=== PATIENT | female | born 1935 | race Caucasian/White ===

== ENCOUNTER 2021-03-31 06:13 | Emergency (ER) | payer MEDICARE, SELFPAY ==
--- NOTE | ~2021-03-31 | CT_ITS ---
EXAMINATION: CT brain wo con DATE: 03/31/2021 07:08 INDICATION: Head injury. TECHNIQUE: Computed tomography (CT) of the head was performed without intravenous contrast. The mA wa s adjusted according to patient size. Iterative reconstruction technique was employed. The dose-lengt h product was 605.33 mGy-cm. COMPARISON: Head CT 10/10/2018 FINDINGS: There are scattered areas of low attenuation in the cerebral white matter. There is an old lacunar infarct in right thalamus. There is a chronic 1.8 cm calcified extra-axial mass overlying rig ht frontal lobe. There is an old infarct in left lentiform nucleus. There is no acute ischemic infarc t or intracranial hemorrhage. There is new mild ventriculomegaly involving the lateral and third vent ricles. The paranasal sinuses are clear. The mastoid air cells are normal. There is posterior scalp s oft tissue swelling. IMPRESSION: 1. 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 2. New mild ventriculomegaly involving the lateral and third ventricles. Correlate clinically for nor mal pressure hydrocephalus. 3. Worsened moderate nonspecific cerebral white matter disease, which likely represents chronic small vessel ischemic disease. 4. Chronic 1.8 cm calcified extra-axial mass overlying right frontal lobe that is contiguous with the skull. This finding may be hyperostosis frontalis interna or a meningioma. Reviewed, dictated and finalized at location A. IMPRESSION: 1. 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 2. New mild ventriculomegaly involving the lateral and third ventricles. Correl ate clinically for normal pressure hydrocephalus. 3. Worsened moderate nonspecific cerebral white matter disease, which likely re presents chronic small vessel ischemic disease. 4. Chronic 1.8 cm calcified extra-axial mass overlying right frontal lobe that is contiguous with the skull. This finding may be hyperostosis frontalis credit intern a or a meningioma.
--- NOTE | ~2021-03-31 | CT_ITS ---
EXAMINATION: CT cervical spine wo con DATE: 03/31/2021 07:08 INDICATION: Head injury. TECHNIQUE: Computed tomography (CT) of the cervical spine was performed without intravenous contrast. Automated exposure control and iterative reconstruction technique were employed. The dose-length pro duct was 196.30 mGy-cm. COMPARISON: None FINDINGS: There are airspace and groundglass opacities with air bronchograms at right lung apex. Ther e is kyphosis of cervical spine. There is 3 mm anterolisthesis of C3 on C4 and C4 on C5 and 2 mm ante rolisthesis of C7 on T1. Vertebral body heights are normal. There is mildly decreased disc height at C3-C4 and severely decreased disc height at C5-C6 and C6-C7. There is peridens degenerative pseudopan nus with mild central canal stenosis. The following disc levels are specifically discussed: C2-C3: There is mild bilateral uncovertebral joint osteoarthritis. There is severe right and mild lef t facet joint osteoarthritis. There is mild right neural foraminal stenosis. There is no central kendall l stenosis. C3-C4: There is no uncovertebral joint osteoarthritis. There is severe bilateral facet joint osteoart hritis. There is moderate right and mild left neural foraminal stenosis. There is no central canal st enosis. C4-C5: There is mild bilateral uncovertebral joint osteoarthritis. There is severe right and mild lef t facet joint osteoarthritis. There is moderate right neural foraminal stenosis. There is no central canal stenosis. C5-C6: There is severe bilateral uncovertebral joint osteoarthritis. There is mild bilateral facet belinda int osteoarthritis. There is moderate bilateral neural foraminal stenosis. There is mild central kendall l stenosis. C6-C7: There is severe bilateral uncovertebral joint osteoarthritis. There is mild bilateral facet belinda int osteoarthritis. There is mild bilateral neural foraminal stenosis. There is mild central canal st enosis. C7-T1: There is no uncovertebral joint osteoarthritis. There is severe bilateral facet joint osteoart hritis. There is no neural foraminal stenosis. There is mild central canal stenosis. IMPRESSION: 1. No fracture. 2. Severe cervical spondylosis. Reviewed, dictated and finalized at location A.
[2021-03-31 06:14] VITALS: BP 164/80; PULSE 74; RESP 18; TEMP 36.6; O2SAT 100
[2021-03-31 07:31] VITALS: BP 147/74
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
[2021-03-31 08:01] VITALS: BP 143/104; PULSE 66; RESP 15; O2SAT 99
--- NOTE | 2021-03-31 08:33 | PC.NURSE ---
Called detention for past medical hx and med list. No paperwork sent with pt. Nurse reports she is agency and not very familiar with pt. Unable to find any hx listed other than hx of Alzheimers.
--- NOTE | 2021-03-31 08:36 | PC.NURSE ---
Attempted to contact pt's POA; no answer.
--- NOTE | 2021-03-31 09:24 | PC.NURSE ---
Attempted to ambulate pt. Pt unable to stand without great amount of assistance. Pt very confused. Pt continuously removing monitors and trying to get out of bed. Safety precautions in place. Close and frequent rounding of pt initiated.
--- NOTE | 2021-03-31 09:38 | PC.NURSE ---
Called and spoke with pt's Niece, Leyla, who reports as far as she knows pt ambulates on her own to get around. She does report that gait has not been very steady and pt shuffles her feet when walking. Leyla reports a recent fall. She also states she has not seen pt in over a year so she can not say for sure if pt uses any assistive devices.
--- NOTE | 2021-03-31 09:46 | PCCCNOTE ---
Spoke with Sanaz ESTES, at [facility] for medical history. Patient's only medical history is Alzheimer's and a vitamin deficiency. The only medications she takes are vitamin D2, Vitamin D3, a multivitamin and Aricept. At baseline she has lost all communication skills though she appears to understand somewhat when spoken to. She is dependent for all ADL's and walks independently with a shuffled gait
--- NOTE | 2021-03-31 11:17 | PC.NURSE ---
Report given to HUEY Yo at [facility].
[2021-03-31 12:17] VITALS: BP 148/70; PULSE 85; RESP 18; O2SAT 96
== END 2021-03-31 12:18 ==
PROVIDERS: Emergency Provider Emergency Medicine; PCP Family Medicine
DX: S01.01XA Laceration without foreign body of scalp, initial encounter (principal); G30.9 Alzheimer's disease, unspecified; F02.80 Dementia in other diseases classified elsewhere, unspecified severity, without behavioral disturbance, psychotic disturbance, mood disturbance, and anxiety; Y09 Assault by unspecified means
CPT/HCPCS: 12002; 70450; 72125; 99284

== ENCOUNTER 2022-01-15 17:58 | Emergency (ER) | payer MEDICARE, SELFPAY ==
--- NOTE | ~2022-01-15 | CT_ITS ---
EXAMINATION: CT facial & cervical spine wo DATE: 01/15/2022 19:10 INDICATION: fall TECHNIQUE: Computed tomography (CT) of the maxillofacial region and cervical spine was performed with out intravenous contrast. Automated exposure control and iterative reconstruction technique were empl oyed. The dose-length product was 118.07 mGy-cm. COMPARISON: None FINDINGS: CERVICAL: Vertebral Body Alignment: 3 mm anterolisthesis of C3 on C4 and C4 on C5, presumably on a degenerative basis. Reversal of the normal cervical lordosis centered at C5. Craniocervical and atlantoaxial alignment: Severe degenerative change with pannus formation. Alignmen t intact. Osseous structures/fracture: No evidence of a lytic or blastic process in the visualized spine. No e vidence of acute fracture. Cervical soft tissues: The paraspinal soft tissues planes are maintained. Degenerative changes: Multilevel severe degenerative disc disease. Multilevel facet arthropathy. Mult ilevel severe bilateral neural foraminal narrowing. Multilevel moderate central canal narrowing. FACE: Soft Tissues: No significant superficial soft tissue swelling. Facial bones: No acute fracture. No lytic or blastic process. Eyes: The globes are intact. The soft tissue planes of the orbits are maintained. Paranasal Sinuses: The visualized aerated spaces are clear. Foreign Bodies: No radiopaque foreign bodies. Other Findings: None. IMPRESSION: No acute fracture or traumatic malalignment in the cervical spine. No acute facial bone fracture. Reviewed, dictated and finalized at location K. IMPRESSION: No acute fracture or traumatic malalignment in the cervical spine. No acute fac ial bone fracture.
--- NOTE | ~2022-01-15 | XR_ITS ---
EXAM: XR pelvis 1-2V DATE: 01/15/2022 18:50 HISTORY: FALL,PT POOR HISTORIAN . COMPARISON: None available. FINDINGS: Normal mineralization. No fracture or dislocation. No lytic or blastic lesion. Degenerativ e changes in the lumbar spine and bilateral hips. No erosion or periosteal change. Soft tissues withi n normal limits. IMPRESSION: No acute osseous finding in the pelvis. Reviewed, dictated and finalized at location K.
--- NOTE | ~2022-01-15 | XR_ITS ---
EXAMINATION: XR chest 1V Exam Date/Time: 01/15/2022 18:37 CDT HISTORY: FALL,PT POOR HISTORIAN Comparison: None available. RESULT: Lines, tubes, and devices: None. Lungs and pleura: Clear. Cardiomediastinal silhouette: Unremarkable cardiomediastinal silhouette. Other: No acute osseous or upper abdominal finding. IMPRESSION: No acute cardiopulmonary process. Reviewed, dictated and finalized at location K.
--- NOTE | ~2022-01-15 | CT_ITS ---
EXAMINATION: CT brain wo con DATE: 01/15/2022 19:10 INDICATION: fall . TECHNIQUE: Computed tomography (CT) of the head was performed without intravenous contrast. The mA wa s adjusted according to patient size. Iterative reconstruction technique was employed. The dose-lengt h product was 832.33 mGy-cm. COMPARISON: 03/31/2021 FINDINGS: No acute intracranial hemorrhage or extra-axial fluid collection. No hydrocephalus, mass, or herniation. No acute ischemic infarct. Unremarkable dural venous sinus attenuation. No acute osseous abnormality. The aerated spaces are clear. Calcified right frontal meningioma. Moderate atrophy and chronic white matter change. Old bilateral l acunar infarcts. IMPRESSION: No acute intracranial process. Reviewed, dictated and finalized at location K.
[2022-01-15 17:59] VITALS: BP 97/66; PULSE 78; RESP 14; TEMP 36.6; O2SAT 99
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
[2022-01-15 19:23] VITALS: BP 123/56; PULSE 79; RESP 18; O2SAT 100
--- NOTE | 2022-01-15 21:27 | PC.NURSE ---
2127: Tried calling nurse report to [facility]. No answer at this time will try again.
--- NOTE | 2022-01-15 21:40 | PC.NURSE ---
Called report to [facility] at this time.
[2022-01-16 00:15] VITALS: BP 123/56; PULSE 79; RESP 18; O2SAT 100
== END 2022-01-16 00:10 ==
PROVIDERS: Emergency Provider Emergency Medicine; PCP Family Medicine
DX: S00.93XA Contusion of unspecified part of head, initial encounter (principal); G30.9 Alzheimer's disease, unspecified; F02.80 Dementia in other diseases classified elsewhere, unspecified severity, without behavioral disturbance, psychotic disturbance, mood disturbance, and anxiety; W06.XXXA Fall from bed, initial encounter
CPT/HCPCS: 70450; 70486; 71045; 72125; 72170; 99284

== ENCOUNTER 2022-02-07 10:56 | Emergency (ER) | payer MEDICARE, SELFPAY ==
[2022-02-07] VITALS (8 sets, daily range): BP systolic 108–149; BP diastolic 78–93; PULSE 64–68; RESP 16; TEMP 36.1; O2SAT 77–100
--- NOTE | ~2022-02-07 | CT_ITS ---
EXAMINATION: CT cervical spine wo con DATE: 02/07/2022 12:31 INDICATION: Head injury. TECHNIQUE: Computed tomography (CT) of the cervical spine was performed without intravenous contrast. Automated exposure control and iterative reconstruction technique were employed. The dose-length pro duct was 92.62 mGy-cm. COMPARISON: CT cervical spine 01/15/2022 FINDINGS: There is mild scarring at the lung apices. There is a 2.5 cm part solid nodule in right upp er lobe, stable from 03/31/2021, likely benign. There is kyphosis of cervical spine. There is 2 mm ante rolisthesis of C3 on C4 and C4 on C5. Vertebral body heights are normal. There is mildly decreased di sc height at C3-C4 and severely decreased disc height at C5-C6 and C6-C7. The following disc levels a re specifically discussed: C2-C3: There is mild bilateral uncovertebral joint osteoarthritis. There is severe right and mild lef t facet joint osteoarthritis. There is mild right neural foraminal stenosis. There is no central kendall l stenosis. C3-C4: There is mild bilateral uncovertebral joint osteoarthritis. There is severe bilateral facet belinda int osteoarthritis. There is mild bilateral neural foraminal stenosis. There is mild central canal st enosis. C4-C5: There is mild bilateral uncovertebral joint osteoarthritis. There is severe right and mild lef t facet joint osteoarthritis. There is mild right neural foraminal stenosis. There is mild central ca nal stenosis. C5-C6: There is severe bilateral uncovertebral joint osteoarthritis. There is mild bilateral facet belinda int osteoarthritis. There is moderate bilateral neural foraminal stenosis. There is mild central kendall l stenosis. C6-C7: There is severe bilateral uncovertebral joint osteoarthritis. There is mild bilateral facet belinda int osteoarthritis. There is mild bilateral neural foraminal stenosis. There is mild central canal st enosis. C7-T1: There is no uncovertebral joint osteoarthritis. There is moderate right and severe left facet joint osteoarthritis. There is mild bilateral neural foraminal stenosis. There is no central canal st enosis. IMPRESSION: 1. No fracture. 2. Severe cervical spondylosis. Reviewed, dictated and finalized at location A.
--- NOTE | ~2022-02-07 | CT_ITS ---
EXAMINATION: CT brain wo con DATE: 02/07/2022 12:30 INDICATION: Head injury. TECHNIQUE: Computed tomography (CT) of the head was performed without intravenous contrast. The mA wa s adjusted according to patient size. Iterative reconstruction technique was employed. The dose-lengt h product was 908.00 mGy-cm. COMPARISON: Head CT 01/15/2022 FINDINGS: There are scattered areas of low attenuation in the cerebral white matter. There is an old lacunar infarct in right thalamus. There is a chronic 1.8 cm calcified extra-axial mass overlying rig ht frontal lobe that is contiguous with the skull. There is no intracranial hemorrhage or acute infar ction. The ventricles are normal in size. The paranasal sinuses are clear. The mastoid air cells are normal. The orbits are normal. IMPRESSION: 1. 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 2. Chronic 1.8 cm calcified extra-axial mass overlying right frontal lobe that is contiguous with the skull. This finding may be hyperostosis frontalis interna or a meningioma. 3. Stable moderate nonspecific cerebral white matter disease, which likely represents chronic small v essel ischemic disease. Reviewed, dictated and finalized at location A. IMPRESSION: 1. 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 2. Chronic 1.8 cm calcified extra-axial mass overlying right frontal lobe that is contiguous with the skull. This finding may be hyperostosis frontalis actuarial internship a or a meningioma. 3. Stable moderate nonspecific cerebral white matter disease, which likely repr esents chronic small vessel ischemic disease.
--- NOTE | 2022-02-07 11:32 | ED.FALL ---
HPI - Fall General Chief Complaint: Fall Stated Complaint: fall Time Seen by Provider: 02/07/22 11:32 History of Present Illness HPI Narrative: Patient is an 86-year-old female with a history of advanced Alzheimer's dementia who resides at [facility] presenting to the emergency department for evaluation of ground-level fall with head trauma. Patient reportedly fell from a standing position hitting her head on the ground. This was witnessed by staff and patient had no loss of consciousness. Obviously history is limited secondary to the patient's baseline advanced dementia. Patient is able to state her name. She has a cervical collar in place. She is awake and alert currently. Vital signs are stable. Chart reviewed, patient with recent visit to our facility in December for a ground-level fall and ultimately discharged home. Otherwise, patient with visit couple of years ago, and limited history from the chart Related Data Home Medications Medication Instructions Recorded Confirmed memantine 5 mg tablet (Namenda) mg PO 03/31/21 Allergies Allergy/AdvReac Type Severity Reaction Status Date / Time No Known Allergies Allergy Verified 03/31/21 06:20 Review of Systems Review of Systems: ROS unobtainable: Yes unobtainable due to medical condition (Dementia) and unobtainable due to mental status PMFSH Past Medical History Medical History Alzheimer's dementia Surgical History Surgical History Surgical history unknown Social History Social History Smoking status: Unknown if ever smoked Exam Narrative: GENERAL: Awake, alert HEAD: Normocephalic, traumatic occipital hematoma, 1 cm superficial scalp laceration, no active bleeding EYES: 2+ PERRLA and EOMI. ENT: Nares clear, no rhinorrhea or epistaxis. Mucous membranes moist. NECK: Supple. Cervical collar in place. CHEST: No respiratory distress, breathing even and non labored, chest wall stable HEART: Regular rate, sinus rhythm ABDOMEN:Non distended, non tender EXTREMITIES: Normal range of motion. No edema. SKIN: Warm, dry, no rash. NEURO:No focal deficits. Alert and oriented x1 Course Vital Signs Vital signs: Vital Signs Temperature 36.1 C L 02/07/22 11:01 Pulse Rate 64 02/07/22 11:01 Respiratory Rate 16 02/07/22 11:01 Blood Pressure 108/84 02/07/22 11:01 Pulse Oximetry 100 02/07/22 11:01 Oxygen Delivery Room Air 02/07/22 11:01 Temperature 36.1 C L 02/07/22 11:01 Pulse Rate 64 02/07/22 11:01 Respiratory Rate 16 02/07/22 11:01 Blood Pressure 149/93 H 02/07/22 11:49 Pulse Oximetry 100 02/07/22 11:16 Oxygen Delivery Room Air 02/07/22 11:01 MDM - Fall MDM Narrative Medical decision making narrative: Patient presented for evaluation following a witness ground-level fall. At the time of assessment, patient is oriented to person, which seems to be her baseline. Seems mechanical in nature based on witnessed fall with head trauma. CT head and C-spine without acute intracranial abnormalities and no evidence of osseous vertebral injury. The scalp laceration was irrigated and closed with 2 edwin. Patient tolerated this well. Given stable vital signs, absence of prodromal symptoms prior to the fall, patient will be discharged back to facility without additional laboratory work-up or imaging. Patient's tetanus was updated in the ER. Discharge Plan Discharge Clinical Impression: Head injury, Laceration of occipital scalp Patient Disposition: SNF Condition: Stable Instructions: Head Injury (ED), Staple Care (ED) Additional Instructions: You had 2 edwin placed into a scalp laceration that was irrigated and free of any foreign bodies or debris. Your CT head and cervical spine imaging is normal without evidence of bleeding or fracture.
[2022-02-07] MEDS: TETANUS,DIPHTHERIA,AC PERTUSSIS ADULT (0.5 ML) BOOSTRIX IM (12:58)
== END 2022-02-07 13:30 ==
PROVIDERS: Emergency Provider Emergency Medicine; PCP Nurse Practitioner Family
DX: S01.01XA Laceration without foreign body of scalp, initial encounter (principal); G30.9 Alzheimer's disease, unspecified; F02.80 Dementia in other diseases classified elsewhere, unspecified severity, without behavioral disturbance, psychotic disturbance, mood disturbance, and anxiety; W18.30XA Fall on same level, unspecified, initial encounter; Z23 Encounter for immunization
CPT/HCPCS: 70450; 72125; 90471; 90715; 99284

== ENCOUNTER 2023-02-26 07:59 | Emergency (ER) | payer MEDICARE, SELFPAY ==
--- NOTE | ~2023-02-26 | CT_ITS ---
Noncontrast CT scan of the cervical spine Technique: Multiple contiguous axial [address] images of the cervical spine were obtained and rec onstructed in 2D sagittal and coronal planes on the acquisition scanner. Dose reduction technique was used on this scan by utilizing automated exposure control, adjustment of the mA and/or kV according to patient size. The dose-length product (DLP) was 94.64 mGy-cm. Clinical History: Pain COMPARISON: 02/07/2022 Findings: No fracture identified. Osseous alignment is essentially stable from prior exam. 4 mm anter olisthesis of C3 over C4 present. 3 mm anterolisthesis of C4 over C5 present. There is severe degener ative disc narrowing at C5-C6 and C6-C7, with associated uncovertebral degenerative change at these l evels. There is severe right neural foraminal narrowing at C3-C4, the right facet arthropathy present . There is additional right neural foraminal narrowing at C4-C5, with right-sided facet arthropathy. There is bilateral neural foraminal narrowing, severe on the left, mild to moderate on the right, at C5-C6. There is bilateral neural foraminal narrowing at C6-C7, left worse than right. No prevertebral soft tissue swelling. Stable right apical pulmonary opacity, presumed chronic scarring. Impression: No acute fracture. 4 mm anterolisthesis of C3 over C4, unchanged. 3 mm anterolisthesis of C4 over C5, unchanged. Moderate degenerative spondylosis, as above. Probable chronic right apical scarring, unchanged. Reviewed, dictated and finalized at [facility]. Impression: No acute fracture. 4 mm anterolisthesis of C3 over C4, unchanged. 3 mm anterolisthesis of C4 over C5, unchanged. Moderate degenerative spondylosis, as above. Probable chronic right apical scarring, unchanged.
--- NOTE | ~2023-02-26 | CT_ITS ---
CT head without contrast Indication: Status post fall COMPARISON: 02/07/2022 Technique: Serial scans were obtained through the brain without the administration of contrast. Dose reduction technique was used on this scan by utilizing automated exposure control and iterative recon struction technique. The dose-length product (DLP) was 605.33 mGy-cm. Findings: There is no evidence of intracranial hemorrhage, mass lesion, or acute infarct. The ventri cles and subarachnoid spaces are dilated, consistent with mild to moderate atrophy. Low attenuation regions are seen within the periventricular white matter bilaterally, likely representing changes fro m chronic microvascular ischemic disease. There is no evidence of edema, mass effect or midline shif t. The visualized paranasal sinuses and mastoid air cells are clear. Impression: No intracranial hemorrhage, mass, or acute infarct. Atrophy and chronic white matter changes, as above. Reviewed, dictated and finalized at location . Impression: No intracranial hemorrhage, mass, or acute infarct. Atrophy and chronic white matter changes, as above.
[2023-02-26 07:58] VITALS: BP 137/84; PULSE 69; RESP 14; TEMP 36.5; O2SAT 97
--- NOTE | 2023-02-26 08:08 | ECG_ITS ---
Measurements Intervals [place] Rate: 71 P: 70 RI: 131 QRS: -47 QRSD: 113 T: -1 QT: 367 QTc: 399 Interpretive Statements SINUS RHYTHM POSSIBLE LEFT ATRIAL ENLARGEMENT [-0.1mV P WAVE IN V1/V2] RIGHT BUNDLE BRANCH BLOCK [120+ ms QRS DURATION, UPRIGHT V1, 40+ ms S IN I/aVL/V4/V5/V6] LEFT ANTERIOR FASCICULAR BLOCK [QRS AXIS <= -45, QR IN I, RS IN II] ABNORMAL ECG NO PREVIOUS ECG AVAILABLE FOR COMPARISON Electronically Signed On 02-26-2023 10:28:36 CDT by Clovis Washington M.D.
--- NOTE | 2023-02-26 08:11 | ED.FALL ---
HPI - Fall General Chief Complaint: Fall Stated Complaint: unwitnessed fall Time Seen by Provider: 02/26/23 08:08 History of Present Illness HPI Narrative: Pt found on ground this morning per NH staff. Pt is demented and at her baseline per staff. Pt has small laceration to back of head. Pt not able to provide any history. Related Data Home Medications Medication Instructions Recorded Confirmed memantine 5 mg tablet (Namenda) mg PO 03/31/21 Allergies Allergy/AdvReac Type Severity Reaction Status Date / Time No Known Allergies Allergy Verified 03/31/21 06:20 Review of Systems Review of Systems: ROS unobtainable: Yes unobtainable due to mental status PMFSH Past Medical History Medical History Alzheimer's dementia Surgical History Surgical History Surgical history unknown Social History Social History Smoking status: Unknown if ever smoked Exam Const: General: no acute distress Nutritional Appearance: well nourished Limitations: altered mental status HENMT: Head: laceration (posterior scalp) Eyes: Conjunctivae: conjunctivae normal EOM: EOMs intact bilaterally Neck: Neck: normal visual inspection and no lymphadenopathy Chest: Chest palpation & inspection: normal inspection of the chest Resp: Effort & Inspection: normal respiratory effort Auscultation: clear to auscultation bilaterally Cardio: Rate: regular rate GI: Auscultation: normal bowel sounds Skin: General skin exam: normal color Rashes: no rashes Neuro: General: moves all extremities and no focal motor deficits Extrem: General: normal to inspection and no clubbing, cyanosis or edema Course Vital Signs Vital signs: Vital Signs Temperature 97.7 F 02/26/23 07:58 Pulse Rate 69 02/26/23 07:58 Respiratory Rate 14 02/26/23 07:58 Blood Pressure 137/84 02/26/23 07:58 Pulse Oximetry 97 02/26/23 07:58 Oxygen Delivery Room Air 02/26/23 07:58 Temperature 97.7 F 02/26/23 07:58 Pulse Rate 78 02/26/23 09:13 Respiratory Rate 18 02/26/23 09:13 Blood Pressure 148/69 H 02/26/23 09:13 Pulse Oximetry 98 02/26/23 09:13 Oxygen Delivery Room Air 02/26/23 07:58 Procedures Laceration Laceration 1: Site: scalp Size (cm): 1 Description: linear Depth: simple, single layer ====== Skin Level ====== Skin layer closed with: edwin (2) ====== Subcutaneous Layer ====== ====== Muscle Layer ====== ====== Tendon Layer ====== MDM - Fall MDM Narrative Medical decision making narrative: ground level fall with small head lac, will need CT brain and c spine since not able to answer questions due to dementia, will also check labs and ekg. labs ekg and ct gil fine wound stapled pt ok to go back Lab Data Attestation: I reviewed the patient's lab results. 02/26/23 08:47 02/26/23 08:47 Labs: Lab Results 02/26/23 02/26/23 Range/Units 08:47 08:48 WBC 8.6 (4.5-10.0) K/mm3 RBC 4.87 (4.2-5.4) M/mm3 Hgb 15.2 H (12.0-15.0) g/dL Hct 46.0 (37.0-47.0) % MCV 94.5 (80-100) fl MCH 31.2 (26-34) pg MCHC 33.0 (32-36) g/dl RDW 14.1 (11.5-14.5) % Plt Count 256 (150-375) k/mm3 MPV 9.8 (7.4-10.4) fl Immature Gran % (Auto) 0.8 H (0-0.5) % Neut % (Auto) 79.0 H (45.5-73.1) % Lymph % (Auto) 13.0 L (18.3-44.2) % [place] % (Auto) 5.6 (2.6-8.5) % Eos % (Auto) 1.1 (0-4.4) % Baso % (Auto) 0.5 (0.2-1.2) % Lymph # (Auto) 1.11 (0.9-3.2) K/mm3 [place] # (Auto) 0.5 (0.1-0.6) K/mm3 Eos # (Auto) 0.1 (0-0.3) K/mm3 Baso # (Auto) 0.0 (0.0-0.1) K/mm3 Abs Immat Gran (auto) 0.07 H (0.00-0.031) K/mm3 Absolute Neuts (auto) 6.8 H (1.3-6.7) K/mm3 Absolute Nucleated RBC 0.0 (0.0-0.012) K/mm3 Nucleated R
[2023-02-26 08:51] VITALS: BP 150/74; PULSE 71; RESP 19; O2SAT 96
[2023-02-26 08:55] LABS: Basophils Percent Auto 0.5 % (0.2-1.2); Eosinophils Absolute Auto 0.1 K/mm3 (0-0.3); Eosinophils Percent Auto 1.1 % (0-4.4); Hemoglobin 15.2 g/dL (12.0-15.0); Immature Granulocyte Absolute 0.07 K/mm3 (0.00-0.031); Immature Granulocyte Percent A 0.8 % (0-0.5); Lymphocytes Absolute Auto 1.11 K/mm3 (0.9-3.2); Mean Corpuscular Hemoglobin 31.2 pg (26-34); Mean Corpuscular Volume 94.5 fl (80-100); Mean Platelet Volume 9.8 fl (7.4-10.4); Monocytes Absolute Auto 0.5 K/mm3 (0.1-0.6); Monocytes Percent Auto 5.6 % (2.6-8.5); Neutrophils Absolute Auto 6.8 K/mm3 (1.3-6.7); Platelet Count Result 256 k/mm3 (150-375); Red Blood Count 4.87 M/mm3 (4.2-5.4); Red Cell Distribution Width 14.1 % (11.5-14.5); White Blood Count 8.6 K/mm3 (4.5-10.0)
[2023-02-26 08:57] LABS: Appearance Urine Clear (Clear); Bilirubin Urine Negative (Negative); Blood Urine Negative (Negative); Color Urine Yellow (Yellow); Glucose Urine UA Negative (Negative); Ketones Urine Negative (Negative); Leukocyte Esterase Ur Negative LEU/UL (Negative); Nitrate Urine Negative (Negative); Protein Urine Negative (Negative); Specific Grav Ur 1.015 (1.001-1.035); pH Urine 6.5 (5.0-9.0)
[2023-02-26 08:58] LABS: Add Urine Microscopic? NO
[2023-02-26 09:05] LABS: Potassium 4.1 mmol/L (3.4-5.0); Prothrombin Time 13.1 Seconds (11.1-14.7)
[2023-02-26 09:06] LABS: Partial Thromboplastin Time 25.3 SECONDS (22.3-36.8)
[2023-02-26 09:10] LABS: Alanine Aminotransferase 25 U/L (6-35); Albumin Level 4.3 g/dL (3.5-5.1); Alkaline Phosphatase 99 U/L (38-126); Anion Gap 6 mmol/L (8-16); Aspartate Amino Transferase 28 U/L (14-36); Bilirubin,Total 0.7 mg/dL (0.2-1.3); Blood Urea Nitrogen 14 mg/dL (7-17); Calcium 9.2 mg/dL (8.4-10.2); Carbon Dioxide 27 mmol/L (22-30); Chloride 100 mmol/L (98-107); Estimated CRCL calculation 30 ml/min; Estimated Glomerular Filt Rate 59; Glucose 102 mg/dL (65-110); Sodium 133 mmol/L (137-145)
[2023-02-26 09:13] VITALS: BP 148/69; PULSE 78; RESP 18; O2SAT 98
--- NOTE | 2023-02-26 09:14 | PC.NURSE ---
C Collar removed by EDP Dr Lopez following neg imaging results.
== END 2023-02-26 11:42 ==
PROVIDERS: Emergency Provider Emergency Medicine; PCP Nurse Practitioner Family
DX: S01.01XA Laceration without foreign body of scalp, initial encounter (principal); G30.9 Alzheimer's disease, unspecified; F02.80 Dementia in other diseases classified elsewhere, unspecified severity, without behavioral disturbance, psychotic disturbance, mood disturbance, and anxiety; R94.31 Abnormal electrocardiogram [ECG] [EKG]; I45.2 Bifascicular block; M47.812 Spondylosis without myelopathy or radiculopathy, cervical region; W19.XXXA Unspecified fall, initial encounter
CPT/HCPCS: 12001; 36415; 70450; 72125; 80053; 81003; 85025; 85610; 85730; 93005; 99284

== ENCOUNTER 2023-11-23 17:49 | Emergency (ER) | payer MEDICARE, SELFPAY ==
--- NOTE | ~2023-11-23 | CT_ITS ---
EXAMINATION: CT brain wo con DATE: 11/23/2023 21:47 INDICATION: Head injury. TECHNIQUE: Computed tomography (CT) of the head was performed without intravenous contrast. The mA wa s adjusted according to patient size. Iterative reconstruction technique was employed. The dose-lengt h product was 681.00 mGy-cm. COMPARISON: Head CT 02/26/2023 FINDINGS: There are old infarcts in the bilateral basal ganglia. There are scattered areas of low att enuation in the cerebral white matter. There is no intracranial hemorrhage, acute infarction, or abno rmal intracranial mass lesion. The ventricles are normal in size. The paranasal sinuses are clear. Th e orbits are normal. The mastoid air cells are normal. IMPRESSION: 1. Old infarcts in the bilateral basal ganglia. 2. Stable extensive nonspecific cerebral white matter disease, which likely represents chronic small vessel ischemic disease. Reviewed, dictated and finalized at location E. IMPRESSION: 1. Old infarcts in the bilateral basal ganglia. 2. Stable extensive nonspecific cerebral white matter disease, which likely rep resents chronic small vessel ischemic disease.
--- NOTE | ~2023-11-23 | CT_ITS ---
EXAMINATION: CT cervical spine wo con DATE: 11/23/2023 21:48 INDICATION: Head injury. TECHNIQUE: Computed tomography (CT) of the cervical spine was performed without intravenous contrast. Automated exposure control and iterative reconstruction technique were employed. The dose-length pro duct was 127.40 mGy-cm. COMPARISON: CT cervical spine 02/26/2023 FINDINGS: There is chronic scarring at the lung apices. There is 2 mm anterolisthesis of C3 on C4, C4 on C5, and C7 on T1. There is kyphosis of cervical spine. Vertebral body heights are normal. There i s mildly decreased disc height at C3-C4 and C4-C5 and severely decreased disc height at C5-C6 and C6- C7. The following disc levels are specifically discussed: C2-C3: There is mild bilateral uncovertebral joint osteoarthritis. There is severe right and moderate left facet joint osteoarthritis. There is mild right neural foraminal stenosis. There is no central canal stenosis. C3-C4: There is mild bilateral uncovertebral joint osteoarthritis. There is severe bilateral facet belinda int osteoarthritis. There is mild lateral neural foraminal stenosis. There is mild central canal sten osis. C4-C5: There is moderate bilateral uncovertebral joint osteoarthritis. There is severe right and mode rate left facet joint osteoarthritis. There is mild bilateral neural foraminal stenosis. There is mil d central canal stenosis. C5-C6: There is severe bilateral uncovertebral joint osteoarthritis. There is mild bilateral facet belinda int osteoarthritis. There is moderate bilateral neural foraminal stenosis. There is mild central kendall l stenosis. C6-C7: There is severe bilateral uncovertebral joint osteoarthritis. There is mild bilateral facet belinda int osteoarthritis. There is mild bilateral neural foraminal stenosis. There is mild central canal st enosis. C7-T1: There is no uncovertebral joint osteoarthritis. There is mild right facet joint osteoarthritis . There is ankylosis of left facet joint with mild hypertrophy. There is mild left neural foraminal s tenosis. There is no central canal stenosis. IMPRESSION: 1. No fracture. 2. Severe cervical spondylosis. Reviewed, dictated and finalized at location E.
[2023-11-23 17:52] VITALS: BP 142/77; PULSE 74; RESP 20; TEMP 36.4; O2SAT 97
[2023-11-23 21:25] VITALS: BP 128/70; PULSE 67; RESP 15; O2SAT 99
--- NOTE | 2023-11-23 22:57 | ED.GENADULT ---
HPI - General Adult General Chief complaint: Head Injury Stated complaint: head injury Time Seen by Provider: 11/23/23 21:04 History of Present Illness HPI narrative: patient is a 88-year-old female who presents emergency department with chief complaint of fall from wheelchair patient was sitting in a wheelchair and back to herself and a wall striking her head the patient has had no changes in level of consciousness is at her baseline per report. Related Data Home Medications Medication Instructions Recorded Confirmed memantine 5 mg tablet (Namenda) mg PO 03/31/21 Allergies Allergy/AdvReac Type Severity Reaction Status Date / Time No Known Allergies Allergy Verified 03/31/21 06:20 Review of Systems Review of Systems: A 10 system review of systems was completed on the patient and is negative except for what is stated in the HPI. Nursing and ancillary documentation was reviewed. PMFSH Past Medical History Medical History Alzheimer's dementia Surgical History Surgical History Surgical history unknown Social History Social History Smoking status: Unknown if ever smoked Exam Narrative: GENERAL: Well-appearing, well-nourished, and in no acute distress. HEAD: Normocephalic, atraumatic. EYES: PERRLA and EOMI. ENT: Nares clear, no rhinorrhea or epistaxis. Mucous membranes moist. NECK: Supple. CHEST: Clear to auscultation. No respiratory distress. HEART: Regular rate and rhythm. No murmur heard. Normal peripheral pulses. ABDOMEN: Soft, nontender, nondistended, normal active bowel sounds. EXTREMITIES: Normal range of motion. No edema. SKIN: Warm, dry, no rash. NEURO: No focal deficits. Alert and oriented To baseline. PSYCH: Normal mood and affect. Course Vital Signs Vital signs: Vital Signs Temperature 36.4 C 11/23/23 17:52 Pulse Rate 74 11/23/23 17:52 Respiratory Rate 20 11/23/23 17:52 Blood Pressure 142/77 H 11/23/23 17:52 Pulse Oximetry 97 11/23/23 17:52 Oxygen Delivery Room Air 11/23/23 17:52 Temperature 36.4 C 11/23/23 17:52 Pulse Rate 67 11/23/23 21:25 Respiratory Rate 15 11/23/23 21:25 Blood Pressure 128/70 11/23/23 21:25 Pulse Oximetry 99 11/23/23 21:25 Oxygen Delivery Room Air 11/23/23 17:52 Medical Decision Making MDM Narrative Medical decision making narrative: differential diagnosis includes intracranial hemorrhage, cervical spine fracture. Patient is at her baseline mental status But due to age and mental status CT head CT C-spine were obtained that showed no evidence of intracranial pathology or cervical spine fracture. Vital Signs Vital Signs: Vital Signs Temperature 36.4 C 11/23/23 17:52 Pulse Rate 74 11/23/23 17:52 Respiratory Rate 20 11/23/23 17:52 Blood Pressure 142/77 H 11/23/23 17:52 Pulse Oximetry 97 11/23/23 17:52 Oxygen Delivery Room Air 11/23/23 17:52 Temperature 36.4 C 11/23/23 17:52 Pulse Rate 67 11/23/23 21:25 Respiratory Rate 15 11/23/23 21:25 Blood Pressure 128/70 11/23/23 21:25 Pulse Oximetry 99 11/23/23 21:25 Oxygen Delivery Room Air 11/23/23 17:52 Discharge Plan Discharge Clinical Impression: Closed head injury, Accidental fall from wheelchair Patient Disposition: NH Assisted/Asst Living Condition: Stable Instructions: Antibiotic Form, Head Injury (ED) Prescriptions: No Action memantine [Namenda] 5 mg Tablet PO Follow-up/Referrals: Olvin,Simi Brooks, [employer]-BC [Primary Care Provider] - Time of Disposition: 23:00
--- NOTE | 2023-11-23 23:07 | PC.NURSE ---
Report given to Sanjuana Swanson LPN @[facility] with all pt discharge instructions.
== END 2023-11-24 00:16 ==
PROVIDERS: Emergency Provider Emergency Medicine; PCP Nurse Practitioner Family
DX: S09.90XA Unspecified injury of head, initial encounter (principal); G30.9 Alzheimer's disease, unspecified; F02.80 Dementia in other diseases classified elsewhere, unspecified severity, without behavioral disturbance, psychotic disturbance, mood disturbance, and anxiety; M47.812 Spondylosis without myelopathy or radiculopathy, cervical region; W05.0XXA Fall from non-moving wheelchair, initial encounter
CPT/HCPCS: 70450; 72125; 99284

== ENCOUNTER 2024-01-12 22:29 | Emergency (ER) | payer MEDICARE, SELFPAY ==
--- NOTE | ~2024-01-12 | CT_ITS ---
EXAMINATION: CT brain wo con, CT facial & cervical spine wo DATE: 01/12/2024 23:32 INDICATION: Fall with head injury TECHNIQUE: 1. Computed tomography (CT) of the head was performed without intravenous contrast. Sagittal and maribel nal reconstructions were performed. The mA was adjusted according to patient size. Iterative reconstr uction technique was employed. The dose-length product was 605.33 mGy-cm. 2. CT of the maxillofacial region and of the cervical spine were performed without intravenous contra st. Sagittal and coronal reconstructions of both regions were obtained. Automated exposure control an d iterative reconstruction technique were employed. The dose-length product was 117.46 mGy-cm. COMPARISON: head and cervical spine CT dated 11/23/2023 FINDINGS: Head CT: Small anterior right frontal scalp hematoma. No calvarial fracture. No acute intracranial hemorrhage, acute infarction or abnormal extra axial fluid collection. There are old lacunar infarcts at the eddie ateral basal ganglia and right thalamus. There is moderate scattered white matter hypoattenuation con sistent with chronic small vessel ischemic disease. Symmetric prominence of the sulci and ventricles consistent with moderate diffuse cerebral volume loss. Chronic 1.7 x 1.7 x 0.8 cm masslike extra-axia l ossification contiguous with the skull and overlying the right frontal lobe which could represent e ither focal hyperostosis frontalis interna or a meningioma. No other mass/mass effect. Mastoid air ce lls and middle ear cavities are clear. Maxillofacial CT: Blowout fracture of the right lamina preparation with small amount of blood in the right ethmoid sinu s. There is an additional fracture of the inferior wall of the right orbit. There is mild depression of a fragment comprising the central aspect of the inferior wall. The lateral margin of the fracture fragment includes the infraorbital canal measures up to 2 mm depression of the fragment. There is an additional moderate amount of blood within the right maxillary sinus a small hematoma and small small amount of soft tissue gas in the right intraorbital fat. The inferior rectus muscle overlies the fra cture but without evident muscular herniation. No other maxillofacial fractures identified. Specifica lly the nasal bones, zygomatic arches, mandible, luong of the left orbit and remaining paranasal sinu ses are intact. Slight rightward bowing of the nasal septum which parallels the contours of the turbi nates with no evident fracture. Cervical spine: There is mild reversal of the normal cervical lordosis. Unchanged 2 mm anterolisthesis C3 on C4, C4-C 5 and C7 on T1. Vertebral body heights are normal. No fracture. Mild disc height loss at C3-C4 and C4 -C5. Severe disc height loss with moderate to severe uncovertebral osteoarthritis at C5-C6 and C6-C7 . Multilevel mild cervical central canal stenosis. There is moderate to severe facet osteoarthritis i n the upper cervical spine with right-sided predominance. There is moderate neural foraminal stenosis on the right at C3-C4 and C4-C5, bilaterally at C5-C6 and on the left at C6-C7. Mild neural from jazmyne nosis in the remainder of the cervical spine. Atherosclerotic calcific lesions at the bilateral carot id bulbs, more prominent on the right. 1.2 cm rim calcified thyroid nodule along the inferior isthmus . Cervical soft tissues are otherwise unremarkable. Small region of bronchiectasis and scarring at th e anterior right apex stable appearance dating back to 03/31/2021. IMPRESSION: 1. No calvarial fracture or acute intracranial process. 2. Age-related changes including moderate diffuse volume loss and moderate scattered white matter hyp oattenuation consistent with chronic small vessel ischemic disease along with old lacunar infarcts at the right thalamus and bilateral basal ganglia. 3. Fractures of the medial and inferior luong of the right orbit. 4. Severe cervical spon
[2024-01-12 22:30] VITALS: BP 137/60; PULSE 65; RESP 16; TEMP 36.7; O2SAT 96
--- NOTE | 2024-01-12 23:16 | PC.NURSE ---
Patient taken to CT via stretcher at this time.
--- NOTE | 2024-01-12 23:31 | ED.FALL ---
HPI - Fall General Chief Complaint: Fall Stated Complaint: Fall Time Seen by Provider: 01/12/24 23:16 Source: patient Mode of arrival: EMS Limitations: dementia History of Present Illness HPI Narrative: This is an 88-year-old female who presents to the ED via EMS for chief complaint of a fall with head injury. Patient is nonverbal at baseline with Alzheimer's dementia. Fall was unwitnessed today but they feel that the patient probably rule out of bed onto an AC unit injuring her right eye. No other reported site of injury Related Data Home Medications Medication Instructions Recorded Confirmed memantine 5 mg tablet (Namenda) mg PO 03/31/21 Allergies Allergy/AdvReac Type Severity Reaction Status Date / Time No Known Allergies Allergy Verified 01/12/24 22:45 Review of Systems Review of Systems: All systems as dictated in [facility] Past Medical History Medical History Alzheimer's dementia Surgical History Surgical History Surgical history unknown Social History Social History Smoking status: Unknown if ever smoked Exam Narrative: GENERAL: Well-appearing, well-nourished, and in no acute distress. HEAD: Normocephalic, atraumatic. EYES: PERRLA and EOMI. ENT: Protecting airway Nares clear, no rhinorrhea or epistaxis. Mucous membranes moist. Oropharynx without tonsillar hypertrophy exudate or other lesions. NECK: Supple. No adenopathy or masses. no tenderness CHEST: No respiratory distress. Clear to auscultation. No wheezes rales or rhonchi HEART: Regular rate and rhythm. No murmur heard. Normal peripheral pulses. ABDOMEN: Soft, nontender, nondistended, normal active bowel sounds. MSK: Normal range of motion. No edema. SKIN: small skin tear to the right inferior eyelid. NEURO: Somnolent in the room. GCS 10. No focal deficits. PSYCH: unable to assess Course Consultations Consultation #1: spoke with Dr. Sauer ([facility]): who will accept the patient for trauma transfer. Date: 01/13/24 Time: 01:00 Vital Signs Vital signs: Vital Signs Temperature 98.0 F 01/12/24 22:30 Pulse Rate 65 01/12/24 22:30 Respiratory Rate 16 01/12/24 22:30 Blood Pressure 137/60 01/12/24 22:30 Pulse Oximetry 96 01/12/24 22:30 Oxygen Delivery Room Air 01/12/24 22:30 Temperature 98.0 F 01/12/24 22:30 Pulse Rate 62 01/13/24 01:18 Respiratory Rate 17 01/13/24 01:18 Blood Pressure 101/45 L 01/13/24 01:18 Pulse Oximetry 97 01/13/24 01:18 Oxygen Delivery Room Air 01/12/24 22:30 MDM - Fall MDM Narrative Medical decision making narrative: This is a 88 year old female who presents to the ED via EMS for chief complaint of unwitnessed fall this evening. It is likely that she fell out of bed and hit her head on the AC unit. Patient has severe dementia and really only speaks in word salad at baseline. Exam is remarkable for the above. She has minor skin tear to the right inferior eyelid. GCS is 10. She is protecting her airway. CT brain is unremarkable. C-spine is clear as well. CT of the facial bones shows right inferior and lateral orbital wall fractures. There is mild right retrobulbar hemorrhage. Given the above findings we attempted to get [facility] with the [facility] who were able to share DNR sheet. She is comfort measures only. Attempted multiple times to get in touch with POA /family members that we have on file. Unable to have any phone calls connect. Due to not being able to talk to family, patient will need to be transferred for trauma for this retrobulbar hemorrhage. Discussed the case with the ED doc, Dr. Sauer ([facility]) who will accept for transfer. Patient will likely be non operative, however she will need to have specialist evaluate
[2024-01-12 23:45] VITALS: O2SAT 92
[2024-01-13] VITALS (24 sets, daily range): BP systolic 95–137; BP diastolic 45–57; PULSE 54–86; RESP 11–22; TEMP 36.6; O2SAT 97–100
--- NOTE | 2024-01-13 00:49 | PC.NURSE ---
This RN called [facility] and spoke to Bethanie. This RN requested to have Bethanie fax patients code status sheet and any information on patients contacts. Bethanie did give number to Leyla, a niece of [phone]. This RN attempted to call the number, did not connect or ring. ERP notified.
--- NOTE | 2024-01-13 01:06 | PC.NURSE ---
DNR received via fax from [facility]. ERP notified and on phone currently with NH staff.
[2024-01-13] MEDS: SODIUM CHLORIDE 0.9% IV 1,000 ML 500 ML IV CONT (03:14)
[2024-01-13] MEDS: ceFAZolin 2 GM/D5W 50 ML 2 GM/50 ML BAG IVPB (03:24)
== END 2024-01-13 04:48 | disposition short-term general hospital (02) ==
PROVIDERS: Emergency Provider Physician Assistant; PCP Nurse Practitioner Family
DX: S02.831A Fracture of medial orbital wall, right side, initial encounter for closed fracture (principal); S02.31XA Fracture of orbital floor, right side, initial encounter for closed fracture; H05.231 Hemorrhage of right orbit; G30.9 Alzheimer's disease, unspecified; F02.80 Dementia in other diseases classified elsewhere, unspecified severity, without behavioral disturbance, psychotic disturbance, mood disturbance, and anxiety; M47.812 Spondylosis without myelopathy or radiculopathy, cervical region; W06.XXXA Fall from bed, initial encounter
CPT/HCPCS: 70450; 70486; 72125; 96365; 99285; J0690; J7030